=== PATIENT | female | born 1945 | race Caucasian/White ===

== ENCOUNTER 2016-08-25 10:43 | Emergency (ER) | payer OTHER ==
[~2016-08-25] VITALS: Ht 154.9 cm; Wt 79.5 kg
[2016-08-25 10:46] VITALS: Ht 154.9 cm; Wt 79.5 kg
[2016-08-25] MEDS ORDERED: ASPI81TA3 PO (12:13)
[2016-08-25] MEDS ORDERED: VALS160T20 PO (12:13)
[2016-08-25] MEDS ORDERED: ATOR10TA65 PO (12:13)
[2016-08-25] MEDS ORDERED: AMLO-145 PO (12:13)
[2016-08-25] MEDS ORDERED: BISO1TAB PO (12:13)
[2016-08-25] MEDS ORDERED: GLYB1TAB3 PO (12:13)
--- NOTE | 2016-08-25 12:24 | ERD ---
ER Documentation Chief Complaint Date/Time DATE: 08/25/16 TIME: 12:17 Chief Complaint pt needs med refill until her dr husain in september, This is a 71-year-old female with history of hypertension, diabetes type 2, high cholesterol presenting to the emergency department asking for medical refills. Patient states that since she her insurance changed her primary care physician as a change lead to a different doctor and the first appointment is in September. She will see Dr. Nirmal Booker. Patient has been taking his medications for a long time. She denies any chest pain, shortness of breath, headache, dizziness. ROS All systems reviewed and are negative except as per history of present illness. Medications Home Meds Active Scripts Valsartan* (Diovan*) 160 Mg Tablet, 160 MG PO DAILY, #30 TAB 1 Refill Prov:BRUNA BARRY PA-C 08/25/16 Aspirin (Aspirin) 81 Mg Chew, 81 MG PO DAILY, #30 TAB.CHEW 1 Refill Prov:BRUNA BARRY PA-C 08/25/16 Amlodipine Besylate* (Amlodipine Besylate*) 5 Mg Tablet, 5 MG PO DAILY, #30 TAB 1 Refill Prov:BRUNA BARRY PA-C 08/25/16 Glyburide/Metformin HCl (Glucovance 5-500 mg Tablet) 1 Each Tablet, 1 EACH PO DAILY, #30 TAB 1 Refill Prov:BRUNA BARRY PA-C 08/25/16 Atorvastatin (Atorvastatin) 10 Mg Tablet, 10 MG PO QHS, #30 TAB 1 Refill Prov:BRUNA BARRY PA-C 08/25/16 Bisoprolol Fumarate/Hctz (Bisoprolol-Hctz 2.5-6.25 mg Tb) 1 Each Tablet, 1 EACH PO DAILY, #30 TAB 1 Refill Prov:BRUNA BARRY PA-C 08/25/16 Allergies Allergies: Coded Allergies: No Known Allergy (Unverified , 08/25/16) PMhx/Soc Medical and Surgical Hx: pt denies Surgical Hx Hx Cardiac Disorders: Yes (HTN, HYPERLIPIDEMIA) Hx Alcohol Use: No Hx Substance Use: No Hx Tobacco Use: No Smoking Status: Never smoker Physical Exam Vitals Vital Signs Date Time Temp Pulse Resp B/P Pulse Ox O2 Delivery O2 Flow Rate FiO2 08/25/16 10:46 98.3 71 16 150/68 98 Physical Exam Const: Well-developed well-nourished Head: Atraumatic Eyes: Normal Conjunctiva ENT: Normal External Ears, Nose and Mouth. Neck: Full range of motion..~ No meningismus. Resp: Clear to auscultation bilaterally Cardio: Regular rate and rhythm, no murmurs Abd: Soft, non tender, non distended. Normal bowel sounds Skin: No petechiae or rashes Back: No midline or flank tenderness Ext: No cyanosis, or edema Neur: Awake and alert Psych: Normal Mood and Affect Procedures/MDM This is a 71-year-old female with history of hypertension, diabetes type 2, high cholesterol presenting to the emergency department asking for medical refills. Patient states that since she her insurance changed her primary care physician as a change lead to a different doctor and the first appointment is in September. She will see Dr. Nirmal Booker. Patient has been taking his medications for a long time. Patient's blood pressure was elevated (>120/80) but appears stable without evidence of hypertension emergency or urgency. Her BP was 150/68 The patient was counseled about the risks of hypertension and urged to pursue outpatient monitoring and therapy. She brought her bottles with her and I have refilled her prescriptions appropriately. Patient is 20 stable and neurovascular intact for discharge. Discussed return the ER for any worsening signs or symptoms. She understands and agrees with plan Departure Diagnosis: Primary Impression: Encounter for medication refill Additional Impressions: Diabetes mellitus, type II Diabetes mellitus complication status: with unspecified complications Diabetes mellitus membership administrator insulin use: unspecified membership administrator insulin use status Qualified Code: E11.8 - Type 2 diabetes mellitus with complication, unspecified halfway insulin use status Hyperlipidemia Hyperlipidemia type: unspecified Qualified Code: E78.5 - Hyperlipidemia, unspecified hyperlipidemia type Hypertension Hypertension type: unspecified secondary hypertension Qualified Code: I15.9 - Secondary hypertension Condition: Stable Patient Instructions: Taking Medicine Safely, High Blood Pressure (Hypertension ) Referrals: Dr. Nirmal Booker [facility] YOU HAVE RECEIVED A MEDICAL SCREENING EXAM AND THE RESULTS INDICATE THAT YOU DO NOT HAVE A CONDITION THAT REQUIRES URGENT TREATMENT IN THE EMERGENCY DEPARTMENT. FURTHER EVALUATION AND TREATMENT OF YOUR CONDITION CAN WAIT UNTIL YOU ARE SEEN IN YOUR DOCTORS OFFICE WITHIN THE NEXT 1-2 DAYS. IT IS YOUR RESPONSIBILITY TO MAKE AN APPOINTMENT FOR FOLOW-UP CARE. IF YOU HAVE A PRIMARY DOCTOR --you should call your primary doctor and schedule an appointment IF YOU DO NOT HAVE A PRIMARY DOCTOR YOU CAN CALL OUR PHYSICIAN REFERRAL HOTLINE AT IF YOU CAN NOT AFFORD TO SEE A PHYSICIAN YOU CAN CHOSE FROM THE FOLLOWING [facility] [address] [facility] [address] [facility] [facility] [address] [facility] [address] [facility]. [facility] [address] [facility] [facility] [address] Additional Instructions: FOLLOW UP WITH YOUR PRIMARY CARE PHYSICIAN TOMORROW.Return to this facility if you are not improving as expected. Take all medicines as directed. Return to this facility if you are not improving as expected. BRUNA BARRY PA-C Aug 25, 2016 12:24
== END 2016-08-25 12:35 | disposition home or self-care (01) ==
LOC: FTE 10:43
DX: I15.9 Secondary hypertension, unspecified (principal); E78.5 Hyperlipidemia, unspecified; E11.8 Type 2 diabetes mellitus with unspecified complications; Z79.82 Long term (current) use of aspirin
CPT/HCPCS: 99281